=== PATIENT | male | born 1990 | race Caucasian/White ===

== ENCOUNTER 2016-11-21 16:06 | Emergency (ER) | payer BC ==
[~2016-11-21] VITALS: Ht 170.2 cm; Wt 69.0 kg
[2016-11-21 16:15] VITALS: BP 149/81
[2016-11-21] MEDS ORDERED: DOCUSATE 50 MG/5 ML ORAL SOL OT ONE (17:30)
[2016-11-21] MEDS ORDERED: DOCUSATE 50 MG/5 ML ORAL SOL ONE (17:58)
== END 2016-11-21 19:12 | disposition home or self-care (01) ==
LOC: ED 19:00
DX: H61.23 Impacted cerumen, bilateral (principal)
CPT/HCPCS: 69209; 99282